=== PATIENT | male | born 1985 | race Caucasian/White ===

== ENCOUNTER 2016-06-28 22:47 | Emergency (ER) | payer OTHER ==
[2016-06-28] MEDS ORDERED: IPRATROPIUM/ALBUTEROL 3 ML NEB INH STA (23:55)
[2016-06-29] MEDS ORDERED: IPRATROPIUM/ALBUTEROL 3 ML NEB INH ONE (00:14)
[2016-06-29] MEDS ORDERED: LEVALBUTEROL 1.25 MG INH ONE ×2 (00:36→01:37)
[2016-06-29] MEDS ORDERED: SODIUM CHLORIDE INHALATION 3 ML NEB ONE ×2 (00:37→01:37)
[2016-06-29] MEDS ORDERED: LEVALBUTEROL 1.25 MG INH STA ×2 (00:38→01:37)
[2016-06-29] MEDS ORDERED: predniSONE 20 MG TABLET PO STA (01:06)
[2016-06-29] MEDS ORDERED: predniSONE 20 MG TABLET ONE (01:10)
[2016-06-29] MEDS ORDERED: ALBUTEROL 8 GM INHALER INH STA (01:37)
[2016-06-29] MEDS ORDERED: ALBUTEROL 8 GM INHALER INH ONE (01:47)
== END 2016-06-29 02:44 | disposition home or self-care (01) ==
DX: J45.901 Unspecified asthma with (acute) exacerbation (principal); F17.200 Nicotine dependence, unspecified, uncomplicated
CPT/HCPCS: 94640; 94664; 99283; A9270; J7512; J7620